=== PATIENT | male | born 1980 | race Caucasian/White ===

== ENCOUNTER 2016-11-29 02:48 | Emergency (ER) | payer OTHER ==
[2016-11-29 02:58] VITALS: BP 135/89; PULSE 84; RESP 18; TEMP 98.2
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
== END 2016-11-29 04:09 | disposition left against medical advice (07) ==
LOC: EC 02:48
DX: S63.253A Unspecified dislocation of left middle finger, initial encounter (principal); X58.XXXA Exposure to other specified factors, initial encounter; Y92.149 Unspecified place in prison as the place of occurrence of the external cause
CPT/HCPCS: 99283

== ENCOUNTER 2019-01-14 09:41 | Inpatient (IN) | payer OTHER ==
--- NOTE | 2019-01-14 09:58 | ED ---
Psych HPI - General Chief Complaint: Psychiatric Symptoms Stated Complaint: Mental Health Time Seen by Provider: 01/14/19 09:44 Source: patient, EMS, RN notes reviewed Mode of arrival: EMS Limitations: no limitations - History of Present Illness Initial Comments: This a 38-year-old male presents emergency Department from long-term for psychiatric evaluation. Patient was found attempted to hang himself. Patient was hanging by that she did this bad. Patient does have a history of depression and suicide attempt. Patient states is severely depressed, suicidal. Patient does complain of mild neck discomfort. Patient otherwise has no complaints. Limited information about hanging given by [email or web address] - Related Data Home Medications Medication Instructions Recorded Confirmed No Known Home Medications 06/05/15 01/14/19 Allergies Allergy/AdvReac Type Severity Reaction Status Date / Time No Known Allergies Allergy Verified 01/14/19 10:17 Review of Systems ROS Statement: Those systems with pertinent positive or pertinent negative responses have been documented in the HPI. ROS Other: All systems not noted in ROS Statement are negative. Past Medical History Past Medical History: No Reported History History of Any Multi-Drug Resistant Organisms: None Reported Past Surgical History: Orthopedic Surgery Past Psychological History: Anxiety, Depression Smoking Status: Never smoker Past Alcohol Use History: Rare Past Drug Use History: Marijuana General Exam Limitations: no limitations General appearance: alert, in no apparent distress Head exam: Present: atraumatic, normocephalic, normal inspection Eye exam: Present: normal appearance, PERRL, EOMI. Absent: scleral icterus, conjunctival injection, periorbital swelling ENT exam: Present: normal exam, mucous membranes moist Neck exam: Present: full ROM. Absent: normal inspection (Mild red lucie noted on anterior neck, no tenderness), tenderness, meningismus, lymphadenopathy Respiratory exam: Present: normal lung sounds bilaterally. Absent: respiratory distress, wheezes, rales, rhonchi, stridor Cardiovascular Exam: Present: regular rate, normal rhythm, normal heart sounds. Absent: systolic murmur, diastolic murmur, rubs, gallop, clicks GI/Abdominal exam: Present: soft, normal bowel sounds. Absent: distended, tenderness, guarding, rebound, rigid Neurological exam: Present: alert, oriented X3, CN II-XII intact Psychiatric exam: Present: depressed, flat affect Course Vital Signs 01/14/19 09:49 Temperature 98.3 F Pulse Rate 73 Respiratory 18 Rate Blood Pressure 127/89 O2 Sat by Pulse 99 Oximetry Medical Decision Making - Medical Decision Making 38-year-old male presented for psychiatric evaluation evaluate by EPS case discussed with psychiatrist who will be admitted for psychiatric evaluation and treatment secondary suicide attempt - Lab Data Result diagrams: 01/14/19 10:02 01/14/19 10:02 Lab Results 01/14/19 01/14/19 Range/Units 10:02 10:02 WBC 5.9 (3.8-10.6) k/uL RBC 4.74 (4.30-5.90) m/uL Hgb 13.6 (13.0-17.5) gm/dL Hct 40.4 (39.0-53.0) % MCV 85.3 (80.0-100.0) fL MCH 28.7 (25.0-35.0) pg MCHC 33.7 (31.0-37.0) g/dL RDW 12.4 (11.5-15.5) % Plt Count 224 (150-450) k/uL Neutrophils % 59 % Lymphocytes % 33 % Monocytes % 5 % Eosinophils % 2 % Basophils % 1 % Neutrophils # 3.5 (1.3-7.7) k/uL Lymphocytes # 1.9 (1.0-4.8) k/uL Monocytes # 0.3 (0-1.0) k/uL Eosinophils # 0.1 (0-0.7) k/uL Basophils # 0.0 (0-0.2) k/uL Sodium 140 (137-145) mmol/L Potassium 4.2 (3.5-5.1) mmol/L Chloride 105 (98-107) mmol/L Carbon Dioxide 28 (22-30) mmol/L Anion Gap 7 mmol/L BUN 14 (9-20) mg/dL Creatinine 1.10 (0.66-1.25) mg/dL Est GFR (CKD-EPI)AfAm >90 (>60 ml/min/1.73 sqM) Est GFR (CKD-EPI)NonAf 84 (>60 ml/min/1.73 sqM) Glucose 99 (74-99) mg/dL Calcium 9.4 (8.4-10.2) mg/dL Total Bilirubin 0.8 (0.2-1.3) mg/dL AST 16 L (17-59) U/L ALT 23 (21-72) U/L Alkaline Phosphatase 49 (38-126) U/L Total Protein 7.1 (6.3-8.2) g/dL Albumin 4.4 (3.5-5.0) g/dL Disposition Clinical Impression: Depression, Suicidal ideation Disposition: TRANSFER TO PSYCH HOSP/UNIT Condition: Stable
[2019-01-14 10:16] LABS: Basophils % (A) 1 %; Eosinophils # (A) 0.1 k/uL (0-0.7); Eosinophils % (A) 2 %; HCT 40.4 % (39.0-53.0); HGB 13.6 gm/dL (13.0-17.5); Lymphocytes # (A) 1.9 k/uL (1.0-4.8); Lymphocytes % (A) 33 %; MCH 28.7 pg (25.0-35.0); MCHC 33.7 g/dL (31.0-37.0); MCV 85.3 fL (80.0-100.0); Mean Platelet Volume 6.2; Monocytes # (A) 0.3 k/uL (0-1.0); Monocytes % (A) 5 %; Neutrophils # (A) 3.5 k/uL (1.3-7.7); Neutrophils % (A) 59 %; Platelet Count 224 k/uL (150-450); RBC 4.74 m/uL (4.30-5.90); RDW 12.4 % (11.5-15.5); WBC 5.9 k/uL (3.8-10.6)
[2019-01-14 10:24] LABS: ALT 23 U/L (21-72); AST 16 U/L (17-59); Albumin 4.4 g/dL (3.5-5.0); Alkaline Phosphatase 49 U/L (38-126); Anion Gap 7 mmol/L; Blood Urea Nitrogen 14 mg/dL (9-20); Calcium 9.4 mg/dL (8.4-10.2); Carbon Dioxide 28 mmol/L (22-30); Chloride 105 mmol/L (98-107); Glucose 99 mg/dL (74-99); Potassium 4.2 mmol/L (3.5-5.1); Sodium 140 mmol/L (137-145); Total Bilirubin 0.8 mg/dL (0.2-1.3); Total Protein 7.1 g/dL (6.3-8.2)
--- NOTE | 2019-01-14 10:43 | CT ---
EXAMINATION TYPE: CT angio neck DATE OF EXAM: 01/14/2019 COMPARISON: None HISTORY: attempted hanging CT DLP: 408.8 mGycm CONTRAST: CTA cervical carotids is performed without Oral Contrast and with IV Contrast, patient injected with 50 mL of Isovue 370. Contrast CTA of the cervical carotids was performed 3-D reconstruction imaging obtained at a separate workstation. Right carotid system: No significant plaque is seen of the right common carotid artery. There is no significant plaque also noted at the carotid bulb. There is no evidence for dissection. ECA is patent . Right vertebral artery appears unremarkable. Left carotid system: No significant plaque is seen of the left common carotid artery. There is no si gnificant plaque also noted at the carotid bulb. No evidence for hemodynamically significant stenosis . No evidence for dissection. ECA is patent. Left vertebral artery appears unremarkable. IMPRESSION: 1. No evidence for hemodynamically significant stenosis. 2. No evidence for dissection or vascular transection.
[2019-01-14] MEDS ORDERED: ACETAMINOPHEN TAB 325 MG TAB PO PRN (13:01)
[2019-01-14] MEDS ORDERED: MAGNESIUM HYDROXIDE 2,400 MG/10 ML CUP PO PRN (13:01)
[2019-01-14] MEDS ORDERED: MAG HYDROX/AL HYDROX/SIMETH 30 ML CUP PO PRN (13:01)
[2019-01-14] MEDS ORDERED: ZIPRASIDONE 20 MG VIAL IM PRN (13:01)
[2019-01-14] MEDS ORDERED: LORazepam 2 MG/ML INJ IM PRN (13:05)
--- NOTE | 2019-01-14 14:12 | P.CONS ---
History of Present Illness - Reason for Consult Consult date: 01/14/19 Medical management Requesting physician: Emanuel Bob - History of Present Illness This is a 38-year-old male patient of Dr. Darden. Patient was brought to the hospital due to suicide attempt at care home. Patient was found attempting to hanging himself. Patient does have past medical history of depression and previous suicide attempt. Patient reports no medical history. Patient denies any medications. Patient denies any significant cardiac history. Patient denies nicotine dependence. Patient reports occasional marijuana use. Patient also reports occasional alcohol use. CT of the neck completed showing no evidence for hemodynamically significant stenosis. No evidence for dissection or vascular transection. Patient at this time is complaining of a little bit of neck stiffness but no other complaints. Patient denies nausea vomiting or diarrhea. Patient denies chest pain or shortness breath. Patient denies cough. Patient denies any urinary burning or frequency Review of Systems Please refer to HPI otherwise unremarkable Past Medical History Past Medical History: No Reported History History of Any Multi-Drug Resistant Organisms: None Reported Past Surgical History: Orthopedic Surgery Past Psychological History: Anxiety, Depression Smoking Status: Never smoker Past Alcohol Use History: Rare Past Drug Use History: Marijuana Medications and Allergies Home Medications Medication Instructions Recorded Confirmed Type No Known Home Medications 06/05/15 01/14/19 History Allergies Allergy/AdvReac Type Severity Reaction Status Date / Time No Known Allergies Allergy Verified 01/14/19 10:17 Physical Exam Vitals: Vital Signs Temp Pulse Resp BP Pulse Ox 01/14/19 09:49 98.3 F 73 18 127/89 99 Intake and Output 01/13/19 01/14/19 01/14/19 22:59 06:59 14:59 Other: Weight 83.915 kg Head normocephalic Neck supple Lungs clear to auscultation bilaterally no wheezing or crackles Heart regular rate and rhythm S1-S2, no rub or gallop Abdomen is soft nontender nondistended positive bowel sounds no hepatosplenomegaly Extremities no edema Neuro alert and orientated to 3 Results CBC & Chem 7: 01/14/19 10:02 01/14/19 10:02 Labs: Abnormal Lab Results - Last 24 Hours (Table) 01/14/19 Range/Units 10:02 AST 16 L (17-59) U/L Assessment and Plan Assessment: 1. Suicide attempt by hanging. Patient was found in care home attempting to obtain resolved. CT of the neck completed showing no evidence for hemodynamically significant stenosis. No evidence for dissection or vascular transection. Patient has been admitted to the mental health unit for further evaluation and treatment 2. History of depression 3. History of previous suicide attempts 4. History of occasional marijuana use Thank you for this consultation Time with Patient: Greater than 30 (Greater than 60% of the total time spent in counseling and coordination of care. I performed an examination of the patient and discussed their management with the Nurse Practitioner. I have reviewed the Nurse Practitioner's notes and agree with the documented findings and plan of care)
[2019-01-14 18:19] VITALS: BMI 22.5
[2019-01-15 08:20] LABS: Basophils # (A) 0.1 k/uL (0-0.2); Basophils % (A) 1 %; Eosinophils # (A) 0.1 k/uL (0-0.7); Eosinophils % (A) 2 %; HCT 44.2 % (39.0-53.0); HGB 14.8 gm/dL (13.0-17.5); Lymphocytes # (A) 2.5 k/uL (1.0-4.8); Lymphocytes % (A) 40 %; MCH 28.8 pg (25.0-35.0); MCHC 33.5 g/dL (31.0-37.0); Mean Platelet Volume 6.3; Monocytes # (A) 0.4 k/uL (0-1.0); Monocytes % (A) 6 %; Neutrophils # (A) 3.1 k/uL (1.3-7.7); Neutrophils % (A) 50 %; Platelet Count 257 k/uL (150-450); RBC 5.14 m/uL (4.30-5.90); RDW 12.4 % (11.5-15.5); WBC 6.3 k/uL (3.8-10.6)
[2019-01-15 08:33] LABS: Calcium 10.1 mg/dL (8.4-10.2); Potassium 4.5 mmol/L (3.5-5.1); Total Bilirubin 1.3 mg/dL (0.2-1.3)
--- NOTE | 2019-01-15 11:40 | P.HP ---
Psychiatric H&P - . H&P Date: 01/15/19 History & Physical: Allergies Allergy/AdvReac Type Severity Reaction Status Date / Time No Known Allergies Allergy Verified 01/14/19 10:17 Vital Signs Temp 98.3 F 01/15/19 00:15 Pulse 66 01/15/19 00:15 Resp 16 01/15/19 00:15 BP 140/85 01/15/19 00:15 Pulse Ox 100 01/14/19 14:05 Intake & Output 01/14/19 01/15/19 01/15/19 18:59 06:59 18:59 Weight 79.5 kg Laboratory Last Values WBC 6.3 k/uL (3.8-10.6) 01/15/19 07:47 RBC 5.14 m/uL (4.30-5.90) 01/15/19 07:47 Hgb 14.8 gm/dL (13.0-17.5) 01/15/19 07:47 Hct 44.2 % (39.0-53.0) 01/15/19 07:47 MCV 86.0 fL (80.0-100.0) 01/15/19 07:47 MCH 28.8 pg (25.0-35.0) 01/15/19 07:47 MCHC 33.5 g/dL (31.0-37.0) 01/15/19 07:47 RDW 12.4 % (11.5-15.5) 01/15/19 07:47 Plt Count 257 k/uL (150-450) 01/15/19 07:47 Neutrophils % 50 % 01/15/19 07:47 Lymphocytes % 40 % 01/15/19 07:47 Monocytes % 6 % 01/15/19 07:47 Eosinophils % 2 % 01/15/19 07:47 Basophils % 1 % 01/15/19 07:47 Neutrophils # 3.1 k/uL (1.3-7.7) 01/15/19 07:47 Lymphocytes # 2.5 k/uL (1.0-4.8) 01/15/19 07:47 Monocytes # 0.4 k/uL (0-1.0) 01/15/19 07:47 Eosinophils # 0.1 k/uL (0-0.7) 01/15/19 07:47 Basophils # 0.1 k/uL (0-0.2) 01/15/19 07:47 Sodium 140 mmol/L (137-145) 01/15/19 07:47 Potassium 4.5 mmol/L (3.5-5.1) 01/15/19 07:47 Chloride 100 mmol/L (98-107) 01/15/19 07:47 Carbon Dioxide 30 mmol/L (22-30) 01/15/19 07:47 Anion Gap 10 mmol/L 01/15/19 07:47 BUN 18 mg/dL (9-20) 01/15/19 07:47 Creatinine 1.25 mg/dL (0.66-1.25) 01/15/19 07:47 Est GFR (CKD-EPI)AfAm 84 (>60 ml/min/1.73 sqM) 01/15/19 07:47 Est GFR (CKD-EPI)NonAf 73 (>60 ml/min/1.73 sqM) 01/15/19 07:47 Glucose 93 mg/dL (74-99) 01/15/19 07:47 Calcium 10.1 mg/dL (8.4-10.2) 01/15/19 07:47 Total Bilirubin 1.3 mg/dL (0.2-1.3) 01/15/19 07:47 AST 19 U/L (17-59) 01/15/19 07:47 ALT 26 U/L (21-72) 01/15/19 07:47 Alkaline Phosphatase 51 U/L (38-126) 01/15/19 07:47 Total Protein 8.0 g/dL (6.3-8.2) 01/15/19 07:47 Albumin 5.0 g/dL (3.5-5.0) 01/15/19 07:47 Triglycerides 98 mg/dL (<150) 01/15/19 07:47 Cholesterol 188 mg/dL (<200) 01/15/19 07:47 LDL Cholesterol, Calc 115 mg/dL (0-99) H 01/15/19 07:47 HDL Cholesterol 53 mg/dL (40-60) 01/15/19 07:47 TSH 3.380 mIU/L (0.465-4.680) 01/15/19 07:47 Assessment and Plan Assessment: This a 38-year-old male presents emergency Department from assisted for psychiatric evaluation. Patient was found attempted to hang himself. Patient was hanging by that she did this bad. Patient does have a history of depression and suicide attempt. Patient states is severely depressed, suicidal. Patient does complain of mild neck discomfort. Patient otherwise has no complaints. Limited information about hanging given by PT WAS BROUGHT TO THE HOSPITAL BY DEPT DUE TO TYING A SHEET AROUND HIS NECK AND TRYING TO HAND HIMSELF. PT IS UPSET THAT HIS DAUGHTER MAY BE BEING MOLESTED BY A PHEDIPHILE WHO IS FRIENDS OF HER EX FAMILY. HE THINKS THAT PEOPLE HIGH UP IN [employer] ARE COVERING UP FOR THIS MAN AND WAGINF A WAR AGAINST HIM. HE SAID HE IS TIRED OF FIGHTING THE SYSTEM AND IF HE GOES BACK HE WILL JUST TRY AGAIN UNTIL HE DIES. HE SAYS HE IS TOO TIRED TO FIGHT THEM ANYMORE - Related Data Home Medications Medication Instructions Recorded Confirmed No Known Home Medications 06/05/15 01/14/19 Allergies Allergy/AdvReac Type Severity Reaction Status Date / Time No Known Allergies Allergy Verified 01/14/19 10:17 Past Medical History Past Medical History: No Reported History History of Any Multi-Drug Resistant Organisms: None Reported Past Surgical History: Orthopedic Surgery Past Psychological History: Anxiety, Depression Smoking Status: Never smoker Past Alcohol Use History: Rare Past Drug Use History: Marijuana Mental Status Examination - General Appearance: [ casual, appears stated age Speech/Language: [spontaneous, rapid, expressive, loud Attitude/Behavior: [cooperative, irritable Mood: [ depressed, anxious, irritable, angry Affect: [ lively, labile Orientation: [time, person, place situation] Thought Content: [wnl, denies delusions, obsessions, phobias, other] Risk Factors: [currently suicidal (ideations, plan) Perception: [wnl, denies hallucinations (auditory, visual, tactile), other] Thought Processes: [goal-oriented, concrete Concentration/Attention Span: [wnl] [Per observation and interview with the patient] Recent Memory: [wnl] [ 3 out of 3 in 3 minutes] Remote Memory: [wnl] [past events, as related history] Intelligence: [ average] [based on history, based on vocabulary, syntax, grammar, and content] Judgement: [ fair] [per patient's behavior/history of present illness] Insight: [fair] [understanding severity of illness/history of present illness] Admitting Diagnosis: [major depressive disorder-severe with suicidal ideation] Patient Strengths - Steady employment/financial stability: [x] Housing stability: [x] Able to vocalize needs: [x] Motivation, determination, readiness for change: [x] Patient Limitations: [ pathological/unsupported environment, Initial Plan of Care: [formal voluntary 15 minute checks with evaluation by medicine, psychiatry, nursing staff, social work and occupational therapy. He'll be integrated in [facility] milieu therapeutic environment whereby he'll be expected to attend groups and participate in a positive interactive manner and a therapeutic [place] milieu environment. He'll be started on Zoloft 50 mg by mouth daily at bedtime for depression and anxiety and Lamictal daily decrease his agitation at nighttime and aid in his sleep.] Estimated Length of Stay: [57 days] Initial Discharge Plan: [ [facility], assisted] Prognosis: [good, fair, guarded] Justification for Inpatient Hospitalization - [agitation, anxiety, depression resulting in significant loss of functioning.] [Dangerous to self with need for controlled environment.] [Emotional or behavioral conditions and complications requiring 24 hour medical and nursing care.] [Need for special drug therapy, or other therapeutic program requiring continuous hospitalization.] [Failure of social or occupational functioning.] [Inability to meet basic life and health needs.] [Legally mandated admission.] (1) Depression Current Visit: Yes Status: Acute Priority: High Code(s): F32.9 - MAJOR DEPRESSIVE DISORDER, SINGLE EPISODE, UNSPECIFIED SNOMED Code(s): 95500166 Time with Patient: Greater than 30
[2019-01-15 18:40] LABS: Hemoglobin A1C 5.8 % (4.0-6.0)
[2019-01-15] MEDS ORDERED: lamoTRIgine 25 MG TAB PO SCH (21:00)
[2019-01-15] MEDS ORDERED: SERTRALINE 50 MG TAB PO SCH (21:00)
--- NOTE | 2019-01-16 11:28 | P.PN ---
Subjective Progress Note Date: 01/16/19 Principal diagnosis: major depressive disorder-severe with suicidal ideation 01/16/2019: Chart reviewed and discussed with nursing staff this morning. He's been interactive other peers and going to groups and participating in [facility] milieu therapeutic environment. She interviewed the patient and he stated he had a visit from his parents last night and has more legal court hearings in the future which made him more anxious and disturbed sleep last night. He has no major side effects from the Lamictal nor the Zoloft. He still is hopeless helpless depressed overwhelmed and thoughts of not living. Objective - Vital Signs Vital signs: Vital Signs Temp 98 F 01/16/19 06:39 Pulse 69 01/16/19 06:39 Resp 18 01/16/19 06:39 BP 130/82 01/16/19 06:39 Pulse Ox 100 01/14/19 14:05 Intake & Output 01/15/19 01/16/19 01/16/19 18:59 06:59 18:59 Weight 79.5 kg 79.8 kg - Labs CBC & Chem 7: 01/15/19 07:47 01/15/19 07:47 Assessment and Plan Assessment: This a 38-year-old male presents emergency Department from [facility] for [facility] evaluation. Patient was found attempted to hang himself. Patient was hanging by that she did this bad. Patient does have a history of depression and suicide attempt. Patient states is severely depressed, suicidal. Patient does complain of mild neck discomfort. Patient otherwise has no complaints. Limited information about hanging given by PT WAS BROUGHT TO THE HOSPITAL BY [facility] DEPT DUE TO TYING A SHEET AROUND HIS NECK AND TRYING TO HAND HIMSELF. PT IS UPSET THAT HIS DAUGHTER MAY BE BEING MOLESTED BY A PHEDIPHILE WHO IS FRIENDS OF HER EX FAMILY. HE THINKS THAT PEOPLE HIGH UP IN [place] [facility] ARE COVERING UP FOR THIS MAN AND WAGINF A WAR AGAINST HIM. HE SAID HE IS TIRED OF FIGHTING THE SYSTEM AND IF HE GOES BACK HE WILL JUST TRY AGAIN UNTIL HE DIES. HE SAYS HE IS TOO TIRED TO FIGHT THEM ANYMORE Mental Status Examination - General Appearance: [ casual, appears stated age Speech/Language: [spontaneous, rapid, expressive, loud Attitude/Behavior: [cooperative, irritable Mood: [ depressed, anxious, irritable, angry Affect: [ lively, labile Orientation: [time, person, place situation] Thought Content: [wnl, denies delusions, obsessions, phobias, other] Risk Factors: [currently suicidal (ideations, plan) Perception: [wnl, denies hallucinations (auditory, visual, tactile), other] Thought Processes: [goal-oriented, concrete Concentration/Attention Span: [wnl] [Per observation and interview with the patient] Recent Memory: [wnl] [ 3 out of 3 in 3 minutes] Remote Memory: [wnl] [past events, as related history] Intelligence: [ average] [based on history, based on vocabulary, syntax, grammar, and content] Judgement: [ fair] [per patient's behavior/history of present illness] Insight: [fair] [understanding severity of illness/history of present illness] Admitting Diagnosis: [major depressive disorder-severe with suicidal ideation] Initial Plan of Care: [formal voluntary 15 minute checks with evaluation by medicine, psychiatry, nursing staff, social work and occupational therapy. He'll be integrated in [facility] milieu therapeutic environment whereby he'll be expected to attend groups and participate in a positive interactive manner and a therapeutic [place] milieu environment. He'll be started on Zoloft 50 mg by mouth daily at bedtime for depression and anxiety and Lamictal daily decrease his agitation at nighttime and aid in his sleep. 01/16/2019: Patient remains on 15 minute checks and is gauged in [facility] milieu therapeutic environment. Still is depressed and will increase his Zoloft to 75 mg by mouth daily at bedtime. He still has racing thoughts and difficulty focusing especially at nighttime and will increase his Lamictal to 50 mg by mouth daily at bedtime. Encourage him to go to groups and participate in [facility] milieu therapeutic environment.] (1) Depression Current Visit: Yes Status: Acute Priority: High Code(s): F32.9 - MAJOR DEPRESSIVE DISORDER, SINGLE EPISODE, UNSPECIFIED SNOMED Code(s): 33039987 Time with Patient: Less than 30
[2019-01-16] MEDS: SERTRALINE 25 MG TAB PO SCH (20:09)
[2019-01-16] MEDS ORDERED: lamoTRIgine 25 MG TAB PO SCH (21:00)
[2019-01-17] MEDS: LORazepam 1 MG TAB PO PRN ×2 (00:04→21:30)
--- NOTE | 2019-01-17 12:33 | P.PN ---
Subjective Progress Note Date: 01/10/19 Principal diagnosis: major depressive disorder-severe with suicidal ideation: Rule out hypomanic presentation 01/16/2019: Chart reviewed and discussed with nursing staff this morning. He's been interactive other peers and going to groups and participating in [facility] therapeutic environment. I interviewed the patient and he stated he had a visit from his parents last night and has more legal court hearings in the future which made him more anxious and disturbed sleep last night. He has no major side effects from the Lamictal nor the Zoloft. He still is hopeless helpless depressed overwhelmed and thoughts of not living. 01/17/2019: Chart reviewed and discussed with nursing staff, and discussed in team at length about his long continued interaction with the court. He recounts that in 2014 when he first started this interaction with his ex-girlfriend and the PPO along with interaction with the police force to be suicidal back then. He was receiving outpatient treatment with [facility] and was told that he could not continue with therapy because of the litigation on the PPO and interaction with his daughter. We will increase this medicines accordingly. He remains on 15 minute checks on the unit. Objective - Vital Signs Vital signs: Vital Signs Temp 98.4 F 01/17/19 00:08 Pulse 71 01/17/19 00:08 Resp 16 01/17/19 00:08 BP 123/87 01/17/19 00:08 Pulse Ox 100 01/14/19 14:05 Intake & Output 01/16/19 01/17/19 01/17/19 18:59 06:59 18:59 Weight 79.8 kg - Labs CBC & Chem 7: 01/15/19 07:47 01/15/19 07:47 Assessment and Plan Assessment: This a 38-year-old male presents emergency Department from [facility] for psychiatric evaluation. Patient was found attempted to hang himself. Patient was hanging by that she did this bad. Patient does have a history of depression and suicide attempt. Patient states is severely depressed, suicidal. Patient does complain of mild neck discomfort. Patient otherwise has no complaints. Limited information about hanging given by PT WAS BROUGHT TO THE HOSPITAL BY [employer] DUE TO TYING A SHEET AROUND HIS NECK AND TRYING TO HAND HIMSELF. PT IS UPSET THAT HIS DAUGHTER MAY BE BEING MOLESTED BY A PHEDIPHILE WHO IS FRIENDS OF HER EX FAMILY. HE THINKS THAT PEOPLE HIGH UP IN [facility] ARE COVERING UP FOR THIS MAN AND WAGINF A WAR AGAINST HIM. HE SAID HE IS TIRED OF FIGHTING THE SYSTEM AND IF HE GOES BACK HE WILL JUST TRY AGAIN UNTIL HE DIES. HE SAYS HE IS TOO TIRED TO FIGHT THEM ANYMORE Mental Status Examination - General Appearance: [ casual, appears stated age Speech/Language: [spontaneous, rapid, expressive, loud Attitude/Behavior: [cooperative, irritable Mood: [ depressed, anxious, irritable, angry Affect: [ lively, labile Orientation: [time, person, place situation] Thought Content: [wnl, denies delusions, obsessions, phobias, other] Risk Factors: [currently suicidal (ideations, plan) Perception: [wnl, denies hallucinations (auditory, visual, tactile), other] Thought Processes: [goal-oriented, concrete Concentration/Attention Span: [wnl] [Per observation and interview with the patient] Recent Memory: [wnl] [ 3 out of 3 in 3 minutes] Remote Memory: [wnl] [past events, as related history] Intelligence: [ average] [based on history, based on vocabulary, syntax, grammar, and content] Judgement: [ fair] [per patient's behavior/history of present illness] Insight: [fair] [understanding severity of illness/history of present illness] Admitting Diagnosis: [major depressive disorder-severe with suicidal ideation] Initial Plan of Care: [formal voluntary 15 minute checks with evaluation by medicine, psychiatry, nursing staff, social work and occupational therapy. He'll be integrated in [facility] therapeutic environment whereby he'll be expected to attend groups and participate in a positive interactive manner and a therapeutic [facility] environment. He'll be started on Zoloft 50 mg by mouth daily at bedtime for depression and anxiety and Lamictal daily decrease his agitation at nighttime and aid in his sleep. 01/16/2019: Patient remains on 15 minute checks and is interacting in [facility] therapeutic environment. Still is depressed and will increase his Zoloft to 75 mg by mouth daily at bedtime. He still has racing thoughts and difficulty focusing especially at nighttime and will increase his Lamictal to 50 mg by mouth daily at bedtime. Encourage him to go to groups and participate in [facility] therapeutic environment. 01/17/2019: Patient remains on 15 minute checks and remains active in the [facility] therapeutic environment. Still remains depressed after the increase of Zoloft 75 mg by mouth daily at bedtime. He still has some difficulty in focusing and will increase his Lamictal 200 mg by mouth daily at bedtime. Discussed in detail his hopeless helplessness and his inability to be able to function. He remains focused and obsessed about his daughter and not being able to see her.] (1) Depression Current Visit: Yes Status: Acute Priority: Medium Code(s): F32.9 - MAJOR DEPRESSIVE DISORDER, SINGLE EPISODE, UNSPECIFIED SNOMED Code(s): 48124471 Time with Patient: Less than 30
[2019-01-17] MEDS ORDERED: lamoTRIgine 100 MG TAB PO SCH (21:00)
[2019-01-17] MEDS: SERTRALINE 25 MG TAB PO SCH (21:30)
--- NOTE | 2019-01-18 12:27 | P.PN ---
Subjective Progress Note Date: 01/18/19 Principal diagnosis: major depressive disorder-severe with suicidal ideation: Rule out hypomanic presentation 01/16/2019: Chart reviewed and discussed with nursing staff this morning. He's been interactive other peers and going to groups and participating in [facility] therapeutic environment. I interviewed the patient and he stated he had a visit from his parents last night and has more legal court hearings in the future which made him more anxious and disturbed sleep last night. He has no major side effects from the Lamictal nor the Zoloft. He still is hopeless helpless depressed overwhelmed and thoughts of not living. 01/17/2019: Chart reviewed and discussed with nursing staff, and discussed in team at length about his long continued interaction with the court. He recounts that in 2014 when he first started this interaction with his ex-girlfriend and the PPO along with interaction with the police force to be suicidal back then. He was receiving outpatient treatment with [facility] and was told that he could not continue with therapy because of the litigation on the PPO and interaction with his daughter. We will increase this medicines accordingly. He remains on 15 minute checks on the unit. 01/18/2019: Chart reviewed, discussed with nursing staff, and discussed in team and discharge on 01/19/2019. He is able to feel less depressed had some difficulty with sleep last night and took an Ativan. Explained to him that he will not have Ativan when he [facility] to [facility]. He remains on 15 minute checks mental health unit. His medications be adjusted accordingly. Objective - Vital Signs Vital signs: Vital Signs Temp 98.3 F 01/18/19 06:35 Pulse 73 01/18/19 06:35 Resp 16 01/18/19 06:35 BP 130/70 01/18/19 06:35 Pulse Ox 100 01/14/19 14:05 - Labs CBC & Chem 7: 01/15/19 07:47 01/15/19 07:47 Assessment and Plan Assessment: This a 38-year-old male presents emergency Department from [facility] for psychiatric evaluation. Patient was found attempted to hang himself. Patient was hanging by that she did this bad. Patient does have a history of depression and suicide attempt. Patient states is severely depressed, suicidal. Patient does complain of mild neck discomfort. Patient otherwise has no complaints. Limited information about hanging given by [employer] PT WAS BROUGHT TO THE HOSPITAL BY [employer] DUE TO TYING A SHEET AROUND HIS NECK AND TRYING TO HAND HIMSELF. PT IS UPSET THAT HIS DAUGHTER MAY BE BEING MOLESTED BY A PHEDIPHILE WHO IS FRIENDS OF HER EX FAMILY. HE THINKS THAT PEOPLE HIGH UP IN [place] ARE COVERING UP FOR THIS MAN AND WAGINF A WAR AGAINST HIM. HE SAID HE IS TIRED OF FIGHTING THE SYSTEM AND IF HE GOES BACK HE WILL JUST TRY AGAIN UNTIL HE DIES. HE SAYS HE IS TOO TIRED TO FIGHT THEM ANYMORE Mental Status Examination - General Appearance: [ casual, appears stated age Speech/Language: [spontaneous, rapid, expressive, loud Attitude/Behavior: [cooperative, irritable Mood: [ depressed, anxious, Affect: [ lively, labile Orientation: [time, person, place situation] Thought Content: [wnl, denies delusions, obsessions, phobias, other] Risk Factors: [currently denies suicidal (ideations, plan) Perception: [wnl, denies hallucinations (auditory, visual, tactile), other] Thought Processes: [goal-oriented, concrete Concentration/Attention Span: [wnl] [Per observation and interview with the patient] Recent Memory: [wnl] [ 3 out of 3 in 3 minutes] Remote Memory: [wnl] [past events, as related history] Intelligence: [ average] [based on history, based on vocabulary, syntax, grammar, and content] Judgement: [ fair] [per patient's behavior/history of present illness] Insight: [Good] [understanding severity of illness/history of present illness] Admitting Diagnosis: [major depressive disorder-severe with suicidal ideation] Initial Plan of Care: [formal voluntary 15 minute checks with evaluation by medicine, psychiatry, nursing staff, social work and occupational therapy. He'll be integrated in [facility] therapeutic environment whereby he'll be expected to attend groups and participate in a positive interactive manner and a therapeutic [facility] environment. He'll be started on Zoloft 50 mg by mouth daily at bedtime for depression and anxiety and Lamictal daily decrease his agitation at nighttime and aid in his sleep. 01/16/2019: Patient remains on 15 minute checks and is interacting in [facility] therapeutic environment. Still is depressed and will increase his Zoloft to 75 mg by mouth daily at bedtime. He still has racing thoughts and difficu lty focusing especially at nighttime and will increase his Lamictal to 50 mg by mouth daily at bedtime. Encourage him to go to groups and participate in [facility] therapeutic environment. 01/17/2019: Patient remains on 15 minute checks and remains active in the [facility] therapeutic environment. Still remains depressed after the increase of Zoloft 75 mg by mouth daily at bedtime. He still has some difficulty in focusing and will increase his Lamictal 200 mg by mouth daily at bedtime. Di scussed in detail his hopeless helplessness and his inability to be able to function. He remains focused and obsessed about his daughter and not being able to see her. 01/18/2019: Patient remains on 15 minute checks and he is active within the [facility] therapeutic environment. Still slightly depressed and will increase his Zoloft 100 mg by mouth daily at bedtime. His Lamictal be increased to 200 mg by mouth daily at bedtime tonight. He is focused and obsessed about getting visitation with his daughter. We discussed in detail how not to feel awful and use cognitive behavioral therapy techniques to stop feeling awful and out of control.] (1) Depression Current Visit: Yes Status: Acute Priority: Medium Code(s): F32.9 - MAJOR DEPRESSIVE DISORDER, SINGLE EPISODE, UNSPECIFIED SNOMED Code(s): 02061823 Time with Patient: Less than 30
[2019-01-18] MEDS: LORazepam 1 MG TAB PO PRN (20:07)
[2019-01-18] MEDS ORDERED: lamoTRIgine 100 MG TAB PO SCH (21:00)
[2019-01-18] MEDS ORDERED: SERTRALINE 100 MG TAB PO SCH (21:00)
[2019-01-19 06:44] VITALS: BP 115/76; PULSE 69; RESP 14; TEMP 97.8
--- NOTE | 2019-01-19 11:15 | P.DS ---
Providers Date of admission: 01/14/19 13:06 Expected date of discharge: 01/19/19 Attending physician: Emanuel Bob DO Consults: 01/14/19 13:01 Consult Physician Routine Consulting Provider: Clemente Joel Consult Reason/Comments: medical management Do you want consulting provider notified?: Already Contacted Primary care physician: Ann Darden - Discharge Diagnosis(es) (1) Depression Allergies Allergy/AdvReac Type Severity Reaction Status Date / Time No Known Allergies Allergy Verified 01/14/19 10:17 Vital Signs Temp 98.3 F 01/15/19 00:15 Pulse 66 01/15/19 00:15 Resp 16 01/15/19 00:15 BP 140/85 01/15/19 00:15 Pulse Ox 100 01/14/19 14:05 Intake & Output 01/14/19 01/15/19 01/15/19 18:59 06:59 18:59 Weight 79.5 kg Laboratory Last Values WBC 6.3 k/uL (3.8-10.6) 01/15/19 07:47 RBC 5.14 m/uL (4.30-5.90) 01/15/19 07:47 Hgb 14.8 gm/dL (13.0-17.5) 01/15/19 07:47 Hct 44.2 % (39.0-53.0) 01/15/19 07:47 MCV 86.0 fL (80.0-100.0) 01/15/19 07:47 MCH 28.8 pg (25.0-35.0) 01/15/19 07:47 MCHC 33.5 g/dL (31.0-37.0) 01/15/19 07:47 RDW 12.4 % (11.5-15.5) 01/15/19 07:47 Plt Count 257 k/uL (150-450) 01/15/19 07:47 Neutrophils % 50 % 01/15/19 07:47 Lymphocytes % 40 % 01/15/19 07:47 Monocytes % 6 % 01/15/19 07:47 Eosinophils % 2 % 01/15/19 07:47 Basophils % 1 % 01/15/19 07:47 Neutrophils # 3.1 k/uL (1.3-7.7) 01/15/19 07:47 Lymphocytes # 2.5 k/uL (1.0-4.8) 01/15/19 07:47 Monocytes # 0.4 k/uL (0-1.0) 01/15/19 07:47 Eosinophils # 0.1 k/uL (0-0.7) 01/15/19 07:47 Basophils # 0.1 k/uL (0-0.2) 01/15/19 07:47 Sodium 140 mmol/L (137-145) 01/15/19 07:47 Potassium 4.5 mmol/L (3.5-5.1) 01/15/19 07:47 Chloride 100 mmol/L (98-107) 01/15/19 07:47 Carbon Dioxide 30 mmol/L (22-30) 01/15/19 07:47 Anion Gap 10 mmol/L 01/15/19 07:47 BUN 18 mg/dL (9-20) 01/15/19 07:47 Creatinine 1.25 mg/dL (0.66-1.25) 01/15/19 07:47 Est GFR (CKD-EPI)AfAm 84 (>60 ml/min/1.73 sqM) 01/15/19 07:47 Est GFR (CKD-EPI)NonAf 73 (>60 ml/min/1.73 sqM) 01/15/19 07:47 Glucose 93 mg/dL (74-99) 01/15/19 07:47 Calcium 10.1 mg/dL (8.4-10.2) 01/15/19 07:47 Total Bilirubin 1.3 mg/dL (0.2-1.3) 01/15/19 07:47 AST 19 U/L (17-59) 01/15/19 07:47 ALT 26 U/L (21-72) 01/15/19 07:47 Alkaline Phosphatase 51 U/L (38-126) 01/15/19 07:47 Total Protein 8.0 g/dL (6.3-8.2) 01/15/19 07:47 Albumin 5.0 g/dL (3.5-5.0) 01/15/19 07:47 Triglycerides 98 mg/dL (<150) 01/15/19 07:47 Cholesterol 188 mg/dL (<200) 01/15/19 07:47 LDL Cholesterol, Calc 115 mg/dL (0-99) H 01/15/19 07:47 HDL Cholesterol 53 mg/dL (40-60) 01/15/19 07:47 TSH 3.380 mIU/L (0.465-4.680) 01/15/19 07:47 Assessment and Plan Assessment: This a 38-year-old male [facility]. Patient was found attempted to hang himself. Patient was hanging by that she did this bad. Patient does have a history of depression and suicide attempt. Patient states is severely depressed, suicidal. Patient does complain of mild neck discomfort. Patient otherwise has no complaints. Limited information about hanging given by PT WAS BROUGHT TO THE HOSPITAL BY DEPT DUE TO TYING A SHEET AROUND HIS NECK AND TRYING TO HAND HIMSELF. PT IS UPSET THAT HIS DAUGHTER MAY BE BEING MOLESTED BY A PHEDIPHILE WHO IS FRIENDS OF HER EX FAMILY. HE THINKS THAT PEOPLE HIGH UP IN [facility] ARE COVERING UP FOR THIS MAN AND WAGINF A WAR AGAINST HIM. HE SAID HE IS TIRED OF FIGHTING THE SYSTEM AND IF HE GOES BACK HE WILL JUST TRY AGAIN UNTIL HE DIES. HE SAYS HE IS TOO TIRED TO FIGHT THEM ANYMORE - Related Data Home Medications Medication Instructions Recorded Confirmed No Known Home Medications 06/05/15 01/14/19 Allergies Allergy/AdvReac Type Severity Reaction Status Date / Time No Known Allergies Allergy Verified 01/14/19 10:17 Past Medical History Past Medical History: No Reported History History of Any Multi-Drug Resistant Organisms: None Reported Past Surgical History: Orthopedic Surgery Past Psychological History: Anxiety, Depression Smoking Status: Never smoker Past Alcohol Use History: Rare Past Drug Use History: Marijuana Mental Status Examination - General Appearance: [ casual, appears stated age Speech/Language: [spontaneous, rapid, expressive, loud Attitude/Behavior: [cooperative, irritable Mood: [ depressed, anxious, irritable, angry Affect: [ lively, labile Orientation: [time, person, place situation] Thought Content: [wnl, denies delusions, obsessions, phobias, other] Risk Factors: [currently suicidal (ideations, plan) Perception: [wnl, denies hallucinations (auditory, visual, tactile), other] Thought Processes: [goal-oriented, concrete Concentration/Attention Span: [wnl] [Per observation and interview with the patient] Recent Memory: [wnl] [ 3 out of 3 in 3 minutes] Remote Memory: [wnl] [past events, as related history] Intelligence: [ average] [based on history, based on vocabulary, syntax, grammar, and content] Judgement: [ fair] [per patient's behavior/history of present illness] Insight: [fair] [understanding severity of illness/history of present illness] Admitting Diagnosis: [major depressive disorder-severe with suicidal ideation] Current Visit: Yes Status: Acute Priority: Low Hospital Course: Plan of Care: [formal voluntary 15 minute checks with evaluation by medicine, psychiatry, nursing staff, social work and occupational therapy. He'll be integrated in [facility] therapeutic environment whereby he'll be expected to attend groups and participate in a positive interactive manner and a therapeutic [facility] environment. He'll be started on Zoloft 50 mg by mouth daily at bedtime for depression and anxiety and Lamictal daily decrease his agitation at nighttime and aid in his sleep. 01/16/2019: Patient remains on 15 minute checks and is interacting in [facility] therapeutic environment. Still is depressed and will increase his Zoloft to 75 mg by mouth daily at bedtime. He still has racing thoughts and difficulty focusing especially at nighttime and will increase his Lamictal to 50 mg by mouth daily at bedtime. Encourage him to go to groups and participate in [facility] therapeutic environment. 01/17/2019: Patient remains on 15 minute checks and remains active in the [facility] therapeutic environment. Still remains depressed after the increase of Zoloft 75 mg by mouth daily at bedtime. He still has some difficulty in focusing and will increase his Lamictal 200 mg by mouth daily at bedtime. Discussed in detail his hopeless helplessness and his inability to be able to function. He remains focused and obsessed about his daughter and not being able to see her. 01/18/2019: Patient remains on 15 minute checks and he is active within the [facility] therapeutic environment. Still slightly depressed and will increase his Zoloft 100 mg by mouth daily at bedtime. His Lamictal be increased to 200 mg by mouth daily at bedtime tonight. He is focused and obsessed about getting visitation with his daughter. We discussed in detail how not to feel awful and use cognitive behavioral therapy techniques to stop feeling awful and out of control. Mental status examination time of discharge on 01/19/2019 and 11:14 AM: The patient presents alert, pleasant, and cooperative. There calmly seated without any agitated behavior. [He] reports that [his] mood is good. Affect is congruent and euthymic. [He] deny having any suicidal or homicidal ideation intent or plan. [He] denies any auditory or visual hallucinations. There is no evidence of any delusional thought content. [His] thought process is linear and goal-directed. [His] speech is fluent and nonpressured. [His] memory and concentration is grossly intact for the purposes of this session. He is [facility] to [facility] his [facility]. He is psychiatrically stable and medically stable and should do fine returning to penitentiary. ] Patient Condition at Discharge: Stable Plan - Discharge Summary Discharge Rx Participant: Yes New Discharge Prescriptions: New lamoTRIgine [LaMICtal] 200 mg PO 2100 30 Days #60 tab Sertraline [Zoloft] 100 mg PO 2100 30 Days #30 tab Discharge Medication List Sertraline [Zoloft] 100 mg PO 2100 30 Days #30 tab 01/19/19 [Rx] lamoTRIgine [LaMICtal] 200 mg PO 2100 30 Days #60 tab 01/19/19 [Rx] Follow up Appointment(s)/Referral(s): [facility] [Outside] - 01/25/19 10:30 am (with [facility] ) [facility] [[facility] - As Needed Patient Instructions/Handouts: Depression (GEN), Suicide Prevention (GEN) Activity/Diet/Wound Care/Special Instructions: Activity and diet as tolerated. Avoid the use of street drugs and alcohol. Take all medications as prescribed. When you are in need of refills on your medications please contact your medical provider and/or outpatient psychiatrist to have this done. Please go to scheduled outpatient appointment for aftercare treatment. If symptoms return or become worse, call the crisis line at and/or go to the nearest emergency room for an evaluation. Discharge Disposition: DC/TRANSFER COURT/LAW
== END 2019-01-19 13:13 | DRG 881 ==
LOC: EC 09:41 → 3MHU 12:46 → UNDOADMIN 12:46 → 3MHU 13:06
PROVIDERS: ADMIT Psychiatry & Neurology Psychiatry; ATTEND Psychiatry & Neurology Psychiatry
DX: F32.9 Major depressive disorder, single episode, unspecified (principal); R45.851 Suicidal ideations; F41.9 Anxiety disorder, unspecified; X83.8XXA Intentional self-harm by other specified means, initial encounter; Z91.5 Personal history of self-harm; Y92.143 Cell of prison as the place of occurrence of the external cause
CPT/HCPCS: 36415; 70498; 80053; 80061; 82075; 83036; 84443; 85025; 99285